=== PATIENT | female | born 1980 | race Caucasian/White ===

== ENCOUNTER 2016-07-12 10:33 | Emergency (ER) | payer BC, OTHER ==
[~2016-07-12] VITALS: Ht 162.6 cm; Wt 67.0 kg
[~2016-07-12 10:33] MED LIST: BUSP10TA PO; SERO300T PO
[2016-07-12 10:34] VITALS: BP 138/80; PULSE 97; RESP 16; TEMP 98.4; O2SAT 98
[2016-07-12 11:08] LABS: AUTOMATED NEUTROPHIL # 3.5 TH/MM3 (1.8-7.7); BASOPHIL % 0.4 % (0.0-2.0); EOSINOPHIL # 0.1 TH/MM3 (0-0.4); EOSINOPHIL % 2.6 % (0.0-4.0); HEMATOCRIT 37.9 % (35.0-46.0); HEMO FLAGS DIFF FINAL; LYMPH % 29.4 % (9.0-44.0); LYMPHOCYTE # 1.7 TH/MM3 (1.0-4.8); MEAN CELL VOLUME 87.1 FL (80.0-100.0); MEAN CORPUSCULAR HEMOGLOBIN 29.8 PG (27.0-34.0); MEAN CORPUSCULAR HGB CONC 34.2 % (32.0-36.0); NEUT % 60.6 % (16.0-70.0); PLATELET COUNT 279 TH/MM3 (150-450); RED BLOOD COUNT 4.35 MIL/MM3 (4.00-5.30); RED CELL DISTRIBUTION WIDTH 13.6 % (11.6-17.2); WHITE BLOOD COUNT 5.7 TH/MM3 (4.0-11.0)
[2016-07-12 11:32] LABS: BETA HCG QUANT 300 MIU/ML (0-5)
[2016-07-12] MEDS ORDERED: VIST50CA PO (12:08)
[2016-07-12 12:10] LABS: BACTERIA, URINE RARE /hpf; BLOOD, URINE NEG (NEG); COMMENT (UR) CULT NOT INDICATED; CULTURE IF INDICATED CULT NOT INDICATED; GLUCOSE,URINE NEG (NEG); KETONE, URINE NEG (NEG); MUCUS URINE FEW /lpf (OCC); NITRITE,URINE NEG (NEG); PH, URINE 5.5 (5.0-8.5); SQUAMOUS EPITHELIAL CELL URINE 6 /hpf (0-5); URINE COLOR YELLOW (YELLW/STRAW)
[2016-07-12] MEDS ORDERED: SUBO8MIS SL (12:12)
--- NOTE | 2016-07-12 12:36 | PD ---
HPI Chief Complaint: Related Problem Time Seen by Provider: 10:50 Travel History International Travel<30 days: No Contact w/Intl Traveler<30days: No Traveled to known affect area: No History of Present Illness HPI 36-year-old female with PMH of depression, bipolar, substance abuse (in remission) presents to the ED for evaluation of 2 day history of 4/10 lower abdominal cramping, left greater than right. Patient endorses mild dysuria. Denies hematuria. Patient denies fever, chills, nausea, vomiting, changes in bowel habits, vaginal bleeding, vaginal discharge. LMP 05/27/16. Patient states she had 2 positive tests at the urgent care today. Also complains of "a few months" history of the left inner thigh. No pain or discharge. Denies current substance abuse, alcohol use. Patient states that she does not smoke cigarettes but "vapes." PFSH Past Medical History Bipolar Disorder: Yes (dx approx. 2005) Depression: Yes Cardiovascular Problems: No Diminished Hearing: No Genitourinary: No Musculoskeletal: No Neurologic: No Reproductive: No Respiratory: No Influenza Vaccination: No ?: LMP: 05/27/2016 : 1 Miscarriage: 1 Dilation and Curettage (D&C): Yes (ENDOMETREOSIS) Past Surgical History Abdominal Surgery: Yes Other Surgery: Yes (labroscopy 2000) Social History Alcohol Use: No Tobacco Use: Yes (VAPE) Substance Use: No Allergies-Medications (Allergen,Severity, Reaction): Coded Allergies: Sulfa (Verified Allergy, Mild, 07/12/16) Reported Meds & Prescriptions Reported Meds & Active Scripts Active Metronidazole 500 Mg Tab 500 Mg PO BID 7 Days Reported Suboxone Sublingual Film (Buprenorphine-Naloxone Sublingual Film) 8-2 Mg Film 1 Film SL Unique ID number required: Vistaril (Hydroxyzine Pamoate) 50 Mg Cap 50 Mg PO TID Buspirone (Buspirone HCl) 10 Mg Tab 20 Mg PO TID Seroquel (Quetiapine Fumarate) 300 Mg Tab 300 Mg PO BID Review of Systems Except as stated in HPI: all other systems reviewed are Neg Physical Exam Narrative GENERAL: Well-nourished, well-developed white female in NAD. SKIN: Focused skin assessment warm/dry. There is a 1-2cm darkened area of the left inner thigh, just below the buttocks.No tenderness, fluctuance, warmth or erythema. HEAD: Normocephalic. EYES: No scleral icterus. No injection or drainage. NECK: Supple, trachea midline. No JVD or lymphadenopathy. CARDIOVASCULAR: Regular rate and rhythm without murmurs, gallops, or rubs. RESPIRATORY: Breath sounds clear and equal bilaterally. No accessory muscle use. GASTROINTESTINAL: Abdomen soft, nondistended. Mildly tender in the LLQ. Active bowel sounds. GENITOURINARY: Normal external genitalia without lesions or erythema. Vaginal vault with scant blood. No drainage. Cervix thick and firm. Cervical os was closed without drainage. No cervical motion tenderness. Uterus nontender and nonenlarged. Bilateral adnexa nontender without masses. MUSCULOSKELETAL: No cyanosis, or edema. Ambulatory. Moves the extremities spontaneously. BACK: Nontender without obvious deformity. No CVA tenderness. Data Data Last Documented VS Vital Signs Date Time Temp Pulse Resp B/P Pulse Ox O2 Delivery O2 Flow Rate FiO2 07/12/16 10:34 98.4 97 16 138/80 98 Orders Complete Blood Count With Diff (07/12/16 10:42) Beta Hcg (Quant/Titer) (07/12/16 10:42) Ed Urine Pregnancytest Poc (07/12/16 10:42) Urinalysis - C+S If Indicated (07/12/16 10:42) Gc And Chlamydia Pcr (07/12/16 12:40) Wet Prep Profile (07/12/16 12:40) Labs Laboratory Tests Test 07/12/16 07/12/16 07/12/16 10:54 11:05 13:10 White Blood Count 5.7 TH/MM3 Red Blood Count 4.35 MIL/MM3 Hemoglobin 13.0 GM/DL Hematocrit 37.9 % Mean Corpuscular Volume 87.1 FL Mean Corpuscular Hemoglobin 29.8 PG Mean Corpuscular Hemoglobin 34.2 % Concent Red Cell Distribution Width 13.6 % Platelet Count 279 TH/MM3 Mean Platelet Volume 9.2 FL Neutrophils (%) (Auto) 60.6 % Lymphocytes (%) (Auto) 29.4 % Monocytes (%) (Auto) 7.0 % Eosinophils (%) (Auto) 2.6 % Basophils (%) (Auto) 0.4 % Neutrophils # (Auto) 3.5 TH/MM3 Lymphocytes # (Auto) 1.7 TH/MM3 Monocytes # (Auto) 0.4 TH/MM3 Eosinophils # (Auto) 0.1 TH/MM3 Basophils # (Auto) 0.0 TH/MM3 CBC Comment DIFF FINAL Differential Comment Human Chorionic Gonadotropin, 300 MIU/ML Quant Urine Color YELLOW Urine Turbidity HAZY Urine pH 5.5 Urine Specific [place] 1.017 Urine Protein NEG mg/dL Urine Glucose (UA) NEG mg/dL Urine Ketones NEG mg/dL Urine Occult Blood NEG Urine Nitrite NEG Urine Bilirubin NEG Urine Urobilinogen LESS THAN 2.0 MG/DL Urine Leukocyte Esterase TRACE Urine RBC LESS THAN 1 /hpf Urine WBC 2 /hpf Urine Squamous Epithelial 6 /hpf Cells Urine Bacteria RARE /hpf Urine Mucus FEW /lpf Microscopic Urinalysis Comment CULT NOT INDICATED Clue Cells (Wet Prep) PRESENT Vaginal Trichomonas (Wet Prep) NONE SEEN Vaginal Yeast (Wet Prep) NONE SEEN MDM Medical Decision Making Medical Screen Exam Complete: Yes Emergency Medical Condition: Yes Differential Diagnosis IUP versus ectopic versus threatened versus STI versus UTI versus abscess versus cellulitis versus other Narrative Course 36-year-old female with PMH of depression, bipolar, substance abuse (in remission) presents to the ED for evaluation of 2 day history of 4/10 lower abdominal cramping, left greater than right. Patient endorses mild dysuria. Denies hematuria, fever, chills, nausea, vomiting, changes in bowel habits, vaginal bleeding, vaginal discharge. LMP 05/27/16. Patient states she had 2 positive tests at the urgent care today. Also complains of "a few months" history of the left inner thigh. No pain or discharge. Denies current substance abuse, alcohol use. Patient states that she does not smoke cigarettes but "vapes." Vitals reviewed. Physical exam reveals a well appearing white female in NAD. Abdominal exam with with mild TTP of the LLQ. Pelvic with scant blood in the canal. Cervix thick, firm, closed. No discharge. UPT: POSITIVE Hcg Quant: 300 CBC: no leukocytosis or anemia UA: Hazy. Trace LE, 2 WBC, rare bacteria. Wet prep: Positive for clue cells. I discussed the results of the workup with the patient. GC and chlamydia screening pending. Patient opts to defer treatment and will inquire about testing results on her return visit in 2 days. This is threatened miscarriage and bacterial vaginosis. Patient was instructed to return to the ED in 2 days for recheck of hCG. She is prescribed Flagyl 500 mg twice a day 7 days. She is instructed to take all medication as prescribed, follow up as discussed. She indicated understanding of instructions and is agreeable to the care plan. She is stable and discharged home. Diagnosis Primary Impression: Threatened in early Additional Impression: BV (bacterial vaginosis) Referrals: Inhalation Therapist Patient Instructions: Bacterial Vaginosis (ED), General Instructions, Threatened Miscarriage (ED) Additional Instructions: Rest, hydrate. Take all antibiotics as prescribed. Return to the ED in 2 days for repeat check of blood levels of the hormone. Check on the status of gonorrhea and chlamydia screening on your return visit as discussed. Return to ED for any urgent or emergent medical condition. Scripts Metronidazole 500 Mg [id number] Mg PO BID 7 Days Ref 0 Prov:Matilde Underwood MD 07/12/16 Disposition: 01 DISCHARGE HOME Condition: Stable Celsa Goode Jul 12, 2016 12:36
[2016-07-12] MEDS ORDERED: METR500T10 PO (13:32)
[2016-07-12 15:38] LABS: CHLAMYDIA PCR NOT DETECTED (NOT DETECT); NEISSERIA PCR NOT DETECTED (NOT DETECT)
== END 2016-07-12 14:09 | disposition home or self-care (01) ==
LOC: NEPD 10:33
DX: O20.0 Threatened abortion (principal); O23.591 Infection of other part of genital tract in pregnancy, first trimester; Z3A.00 Weeks of gestation of pregnancy not specified
CPT/HCPCS: 81001; 84702; 84703; 85025; 87210; 87491; 87591; 99283

== ENCOUNTER 2016-07-14 08:53 | Emergency (ER) | payer OTHER ==
[~2016-07-14] VITALS: Ht 162.6 cm; Wt 66.0 kg
[~2016-07-14 08:53] MED LIST changes: +METR500T10 PO; +SUBO8MIS SL; +VIST50CA PO
[2016-07-14 08:54] VITALS: BP 138/94; PULSE 112; RESP 20; TEMP 98.5; O2SAT 98
[2016-07-14 09:05] VITALS: BP 118/75; PULSE 93; RESP 14; TEMP 98.3; O2SAT 99
--- NOTE | 2016-07-14 09:06 | PD ---
HPI . Pelvic pain Chief Complaint: Related Problem Time Seen by Provider: 09:01 Travel History International Travel<30 days: No Contact w/Intl Traveler<30days: No Traveled to known affect area: No History of Present Illness HPI Patient presents with now a 4 day history of pelvic pain and vaginal bleeding. She is . Last normal menstrual period was 05/27. She states that her bleeding is more than spotting but less than a menstrual cycle. Her pain is described as cramping and is rated as 5/10. She was seen here on 07/12 and was found to have a quantitative hCG of only 300. She was instructed to return here today for repeat. Patient reports that the Flagyl that she was prescribed 2 days ago seems to be causing a reaction. She is having some itching and some burning and tearing of her eyes. PFSH Past Medical History Bipolar Disorder: Yes (dx approx. 2005) Depression: Yes Cardiovascular Problems: No Diminished Hearing: No Genitourinary: No Musculoskeletal: No Neurologic: No Reproductive: No Respiratory: No ?: Not LMP: 05/27/16 : 1 Miscarriage: 1 Dilation and Curettage (D&C): Yes (ENDOMETREOSIS) Past Surgical History Abdominal Surgery: Yes Other Surgery: Yes (labroscopy 2000) Social History Alcohol Use: No Tobacco Use: Yes (VAPE) Substance Use: No Allergies-Medications (Allergen,Severity, Reaction): Coded Allergies: Sulfa (Verified Allergy, Mild, 07/14/16) Reported Meds & Prescriptions Reported Meds & Active Scripts Active Clindamycin Vaginal Cream (Clindamycin Phosphate) 2% Cream 1 Appl VAGINAL HS Metronidazole 500 Mg Tab 500 Mg PO BID 7 Days Reported Suboxone Sublingual Film (Buprenorphine-Naloxone Sublingual Film) 8-2 Mg Film 1 Film SL Unique ID number required: Vistaril (Hydroxyzine Pamoate) 50 Mg Cap 50 Mg PO TID Buspirone (Buspirone HCl) 10 Mg Tab 20 Mg PO TID Seroquel (Quetiapine Fumarate) 300 Mg Tab 300 Mg PO BID Review of Systems Except as stated in HPI: all other systems reviewed are Neg Eyes: Positive: Tearing, Other (burning of her eyes) Genitourinary: Positive: Pelvic Pain, Vaginal Bleeding Skin: Positive Rash Physical Exam Narrative GENERAL: Awake and alert and in no acute distress. SKIN: Warm and dry. HEAD: Atraumatic. Normocephalic. EYES: Pupils equal and round. NECK: Trachea midline. CARDIOVASCULAR: Regular rate and rhythm. RESPIRATORY: No accessory muscle use. ABDOMEN: Soft with minimal suprapubic tenderness. No guarding or rebound. MUSCULOSKELETAL: No obvious deformities. No edema. NEUROLOGICAL: Awake and alert. No obvious cranial nerve deficits. Motor grossly within normal limits. Normal speech. PSYCHIATRIC: Appropriate mood and affect; insight and judgment normal. Data Data Last Documented VS Vital Signs Date Time Temp Pulse Resp B/P Pulse Ox O2 Delivery O2 Flow Rate FiO2 07/14/16 09:05 98.3 93 14 118/75 99 Room Air Orders Beta Hcg (Quant/Titer) (07/14/16 08:57) Abo/Rh Blood Type (07/14/16 09:07) Labs Laboratory Tests Test 07/14/16 07/14/16 09:00 09:15 Human Chorionic Gonadotropin, 92 MIU/ML Quant Blood Type A POSITIVE Blood Bank Comment MDM Medical Decision Making Medical Screen Exam Complete: Yes Emergency Medical Condition: Yes Medical Record Reviewed: Yes (patient was here on 07/12 for pelvic cramping in early . She was found to have a very low rate of hCG at 300. She was also found to have bacterial vaginosis. She is here today for repeat hCG.) Differential Diagnosis Differential diagnosis of bleeding in includes but is not limited to physiologic bleeding, spontaneous AB, ectopic , placenta previa Narrative Course Patient presents for recheck of pelvic pain in early . We also need to change her antibiotic that she was prescribed for bacterial vaginosis. She seems to be having a reaction to the Flagyl. Furthermore, I do not see her blood type in her record. We will check that today as well. Quantitative hCG is down to 92. Her blood type is A+. This patient is having a spontaneous AB. I will discharge her with instructions to follow-up with gynecology in about a week. Diagnosis Primary Impression: Spontaneous Additional Impression: BV (bacterial vaginosis) Referrals: Insurance Processor 1 week Med/Other Pt SpecificInfo: Prescription(s) given, Med Stopped Scripts Clindamycin Vaginal Cream 2% Cream1 Appl VAGINAL HS #7 APPL Ref 0 Prov:Yvette Valladares MD 07/14/16 Disposition: 01 DISCHARGE HOME Condition: Stable Yvette Valladares MD Jul 14, 2016 09:05
[2016-07-14] MEDS ORDERED: CLIN2CRE VAGINAL (09:14)
[2016-07-14 09:29] LABS: BETA HCG QUANT 92 MIU/ML (0-5)
== END 2016-07-14 10:19 | disposition home or self-care (01) ==
LOC: NEPD 08:53
DX: O03.9 Complete or unspecified spontaneous abortion without complication (principal); N76.0 Acute vaginitis; O23.599 Infection of other part of genital tract in pregnancy, unspecified trimester
CPT/HCPCS: 84702; 86900; 86901; 99283

== ENCOUNTER 2016-10-30 15:23 | Emergency (ER) | payer OTHER ==
[~2016-10-30] VITALS: Ht 162.6 cm; Wt 74.0 kg
[~2016-10-30 15:23] MED LIST changes: -METR500T10 PO
[2016-10-30 15:25] VITALS: BP 130/73; PULSE 107; RESP 20; TEMP 98.2; O2SAT 97
--- NOTE | 2016-10-30 16:09 | PD ---
Physical Exam Date Seen by Provider: Oct 30, 2016 Time Seen by Provider: 16:06 Narrative 36-year-old female presents to emergency Department with 3 week history of upper extremity infection symptoms which now settled in her chest. She now has increased wheezing and cough and congestion, with reports waking up at night short of breath and feels like she is choking. Patient has history of asthma but has not had need for an inhaler for several years. Patient does admit to smoking. Patient denies productive cough. She feels increased shortness of breath with exertion. Patient denies . Patient denies significant pain. Patient is allergic to sulfa. Vital signs are reviewed. Patient is awaiting bed placement. Data Data Last Documented VS Vital Signs Date Time Temp Pulse Resp B/P (MAP) Pulse Ox O2 Delivery O2 Flow Rate FiO2 10/30/16 15:25 98.2 107 20 130/73 (92) 97 Room Air [facility] Medical Record Reviewed: Yes Supervised Visit with BRAD: Yes Condition: Stable Juancho Nobles Oct 30, 2016 16:09
--- NOTE | 2016-10-30 16:32 | PD ---
HPI Chief Complaint: Respiratory Symptoms Time Seen by Provider: 14:30 Travel History International Travel<30 days: No Contact w/Intl Traveler<30days: No Traveled to known affect area: No History of Present Illness HPI 36-year-old female patient presents to the emergency department for evaluation of cough that she has been experiencing status post upper respiratory infection 3 weeks ago. Patient states herself and her children were sick 3 weeks ago but she is the only one that still has a cough. Patient denies any fevers or chest pain. Patient denies any abdominal pain, nausea vomiting diarrhea. Patient denies any other physiological complaints outside the cough. Patient has a history of asthma however has not had an exacerbation for many years. Patient denies the cough being productive. Patient states the cough is worse at night. Patient denies rhinorrhea or sore throat. Patient denies any recent travels or use of control pills. PFSH Past Medical History Bipolar Disorder: Yes (dx approx. 2005) Depression: Yes Cardiovascular Problems: No Diminished Hearing: No Genitourinary: No Musculoskeletal: No Neurologic: No Reproductive: No Respiratory: No ?: Not LMP: 10/27 : 1 Miscarriage: 1 Dilation and Curettage (D&C): Yes (ENDOMETREOSIS) Past Surgical History Abdominal Surgery: Yes Other Surgery: Yes (labroscopy 2000) Social History Alcohol Use: No Tobacco Use: Yes ( ) Substance Use: No Allergies-Medications (Allergen,Severity, Reaction): Coded Allergies: Sulfa (Sulfonamide Antibiotics) (Unverified Allergy, Mild, 10/30/16) Reported Meds & Prescriptions Reported Meds & Active Scripts Active Reported Suboxone Sublingual Film (Buprenorphine-Naloxone Sublingual Film) 8-2 Mg Film 1 Film SL Unique ID number required: Vistaril (Hydroxyzine Pamoate) 50 Mg Cap 50 Mg PO TID Buspirone (Buspirone HCl) 10 Mg Tab 20 Mg PO TID Seroquel (Quetiapine Fumarate) 300 Mg Tab 300 Mg PO BID Review of Systems Except as stated in HPI: all other systems reviewed are Neg Physical Exam Narrative GENERAL: Well-nourished well-developed 36-year-old female in no apparent distress. SKIN: Focused skin assessment warm/dry. HEAD: Atraumatic. Normocephalic. EYES: Pupils equal and round. No scleral icterus. No injection or drainage. ENT: No nasal bleeding or discharge. Mucous membranes pink and moist. NECK: Trachea midline. No JVD. CARDIOVASCULAR: Regular rate and rhythm. No murmur appreciated. RESPIRATORY: No accessory muscle use. No wheezing on inspiration or exhalation. Clear to auscultation. Breath sounds equal bilaterally. GASTROINTESTINAL: Abdomen soft, non-tender, nondistended. Hepatic and splenic margins not palpable. MUSCULOSKELETAL: No obvious deformities. No clubbing. No cyanosis. No edema. NEUROLOGICAL: Awake and alert. No obvious cranial nerve deficits. Motor grossly within normal limits. Normal speech. PSYCHIATRIC: Appropriate mood and affect; insight and judgment normal. Data Data Last Documented VS Vital Signs Date Time Temp Pulse Resp B/P (MAP) Pulse Ox O2 Delivery O2 Flow Rate FiO2 10/30/16 15:25 98.2 107 20 130/73 (92) 97 Room Air MDM Medical Decision Making Medical Screen Exam Complete: Yes Emergency Medical Condition: Yes Medical Record Reviewed: Yes Interpretation(s) Afebrile Differential Diagnosis Differential diagnoses include but not limited to bronchitis, pneumonia, upper respiratory infection, asthma exacerbation, allergic rhinitis Narrative Course 36-year-old female presents to the emergency department for evaluation of cough 3 weeks. Patient states herself and her children were sick with an upper respiratory infection 3 weeks ago. She is the only person that remains with a cough. Patient admits to smoking daily. Patient states she does have a history of asthma but has not had an exacerbation in many years. Patient denies any fever, chest pain, malaise, nausea, vomiting, diarrhea, rhinorrhea, sore throat or lightheadedness. There is no wheezing noted on inspiration or expiration. Patient states the cough is not productive and is worse at night. Patient case discussed with my attending Dr. Valladares. Patient will be discharged home with prescription for prednisone and an albuterol inhaler. Patient will be instructed to return the emergency Department with any worsening condition or emergent symptoms. Based on patient's symptoms, clinical presentation and vital sign review hospital admission is not necessary and there is no further need for evaluation in the emergency department. Diagnosis Primary Impression: Bronchitis Referrals: Primary Care Physician Patient Instructions: Acute Bronchitis (ED), General Instructions Additional Instructions: Take prednisone for 5 days to reduce inflammation. Take albuterol inhaler as needed to open up the bronchials and reduce cough. Stop smoking. Return to the emergency department with any worsening condition or emergent symptoms. Med/Other Pt SpecificInfo: Prescription(s) given Scripts Albuterol 8.5 GM Inh (Proair Hfa 8.5 GM Inh) 90 Mcg/Act Aer 2 PUFF INH Q4-6H Y for COUGH, #1 INHALER 0 Refills 108 mcg/actuation Prov: Gemma Lozada 10/30/16 Prednisone (Prednisone) 50 Mg Tab 50 MG PO DAILY for 5 Days, #5 TAB 0 Refills Prov: Gemma Lozada 10/30/16 Disposition: 01 DISCHARGE HOME Condition: Stable Gemma Lozada Oct 30, 2016 16:32
[2016-10-30] MEDS ORDERED: PRED50 PO (16:57)
[2016-10-30] MEDS ORDERED: ALBUAER3 INH (16:58)
== END 2016-10-30 17:16 | disposition home or self-care (01) ==
LOC: NEPD 15:23
DX: J40 Bronchitis, not specified as acute or chronic (principal); J45.909 Unspecified asthma, uncomplicated; Z72.0 Tobacco use
CPT/HCPCS: 99284

== ENCOUNTER 2016-11-09 07:47 | Emergency (ER) | payer OTHER ==
[~2016-11-09] VITALS: Ht 162.6 cm; Wt 78.0 kg
[~2016-11-09 07:47] MED LIST changes: +ALBUAER3 INH; +PRED50 PO
[2016-11-09 07:50] VITALS: BP 133/87; PULSE 100; RESP 16; TEMP 98.3; O2SAT 94; O2SAT 96
[2016-11-09] MEDS ORDERED: SODIUM CHLOR 0.9% 1000 ML INJ 1,000 ML IV SCH (08:01)
[2016-11-09 08:07] VITALS: O2SAT 98
--- NOTE | 2016-11-09 08:07 | PD ---
HPI Chief Complaint: General Weakness Time Seen by Provider: 08:01 Travel History International Travel<30 days: No Contact w/Intl Traveler<30days: No Traveled to known affect area: No History of Present Illness HPI 36-year-old female patient presents to the ER today for 2 days of nausea, vomiting, diarrhea, headache, feeling tired. She states that she had some cold symptoms of been going on for a few weeks, was seen for bronchitis, but states it never really went away. She denies any recent fevers, stiff neck, or any other symptoms. She had vomited multiple times last night. States that she is now also having lower abdominal pains which she currently rates it a 5 out of 10. Modifying Factors: None Associated Signs & Symptoms: Nausea, vomiting, diarrhea, abdominal discomfort, headaches, fatigue Risk Factors: None PFSH Past Medical History Bipolar Disorder: Yes (dx approx. 2006) Anxiety: Yes Depression: Yes Diminished Hearing: No Medical other: Yes (endometrosis ) ?: Not LMP: 10/2016 : 1 Miscarriage: 1 Dilation and Curettage (D&C): Yes (ENDOMETREOSIS) Past Surgical History Abdominal Surgery: Yes Other Surgery: Yes (labroscopy 2000) Social History Alcohol Use: No Tobacco Use: Yes ( 1/2 pack a day ) Substance Use: No Allergies-Medications (Allergen,Severity, Reaction): Coded Allergies: Sulfa (Sulfonamide Antibiotics) (Unverified Allergy, Mild, 11/09/16) Reported Meds & Prescriptions Reported Meds & Active Scripts Active Proair Hfa 8.5 GM Inh (Albuterol Sulfate) 90 Mcg/Act Aer 2 Puff INH Q4-6H PRN 108 mcg/actuation Reported Suboxone Sublingual Film (Buprenorphine-Naloxone Sublingual Film) 8-2 Mg Film 1 Film SL Unique ID number required: Vistaril (Hydroxyzine Pamoate) 50 Mg Cap 50 Mg PO TID Buspirone (Buspirone HCl) 10 Mg Tab 20 Mg PO TID Seroquel (Quetiapine Fumarate) 300 Mg Tab 300 Mg PO BID Review of Systems Except as stated in HPI: all other systems reviewed are Neg Physical Exam Narrative GENERAL: Well-developed middle age white female patient currently in mild distress. Awake and oriented 3. SKIN: Focused skin assessment warm/dry. HEAD: Atraumatic. Normocephalic. EYES: Pupils equal and round. No scleral icterus. No injection or drainage. ENT: No nasal bleeding or discharge. Mucous membranes pink and moist. NECK: Trachea midline. No JVD. CARDIOVASCULAR: Regular rate and rhythm. No murmur appreciated. RESPIRATORY: No accessory muscle use. Clear to auscultation. Breath sounds equal bilaterally. GASTROINTESTINAL: Abdomen soft, non-tender, nondistended. Hepatic and splenic margins not palpable. MUSCULOSKELETAL: No obvious deformities. No clubbing. No cyanosis. No edema. NEUROLOGICAL: Awake and alert. No obvious cranial nerve deficits. Motor grossly within normal limits. Normal speech. PSYCHIATRIC: Appropriate mood and affect; insight and judgment normal. Data Data Last Documented VS Vital Signs Date Time Temp Pulse Resp B/P (MAP) Pulse Ox O2 Delivery O2 Flow Rate FiO2 11/09/16 08:07 98 Room Air 11/09/16 08:07 89 16 11/09/16 07:50 98.3 133/87 (102) Orders Orders Complete Blood Count With Diff (11/09/16 08:01) Comprehensive Metabolic Panel (11/09/16 08:01) Lipase (11/09/16 08:01) Urinalysis - C+S If Indicated (11/09/16 08:01) Iv Access Insert/Monitor (11/09/16 08:01) Ecg Monitoring (11/09/16 08:01) Oximetry (11/09/16 08:01) Ondansetron Inj (Zofran Inj) (11/09/16 08:15) Sodium Chlor 0.9% 1000 Ml Inj (Ns 1000 M (11/09/16 08:01) Sodium Chloride 0.9% Flush (Ns Flush) (11/09/16 08:15) Ed Urine Pregnancytest Poc (11/09/16 08:01) Chest, Single Ap (11/09/16 09:09) Ct Abd/Pel W Iv Contrast(Rout) (11/09/16 09:35) Iohexol 350 Inj (Omnipaque 350 Inj) (11/09/16 10:00) Labs Laboratory Tests Test 11/09/16 08:01 11/09/16 09:00 White Blood Count 16.7 TH/MM3 Red Blood Count 4.86 MIL/MM3 Hemoglobin 14.4 GM/DL Hematocrit 43.2 % Mean Corpuscular Volume 88.8 FL Mean Corpuscular Hemoglobin 29.6 PG Mean Corpuscular Hemoglobin Concent 33.3 % Red Cell Distribution Width 14.0 % Platelet Count 355 TH/MM3 Mean Platelet Volume 8.2 FL Neutrophils (%) (Auto) 85.2 % Lymphocytes (%) (Auto) 5.5 % Monocytes (%) (Auto) 9.0 % Eosinophils (%) (Auto) 0.2 % Basophils (%) (Auto) 0.1 % Neutrophils # (Auto) 14.3 TH/MM3 Lymphocytes # (Auto) 0.9 TH/MM3 Monocytes # (Auto) 1.5 TH/MM3 Eosinophils # (Auto) 0.0 TH/MM3 Basophils # (Auto) 0.0 TH/MM3 CBC Comment DIFF FINAL Differential Comment Blood Urea Nitrogen 19 MG/DL Creatinine 1.18 MG/DL Random Glucose 124 MG/DL Total Protein 7.3 GM/DL Albumin 3.9 GM/DL Calcium Level 9.7 MG/DL Alkaline Phosphatase 65 U/L Aspartate Amino Transf (AST/SGOT) 25 U/L Alanine Aminotransferase (ALT/SGPT) 19 U/L Total Bilirubin 0.6 MG/DL Sodium Level 141 MEQ/L Potassium Level 4.3 MEQ/L Chloride Level 109 MEQ/L Carbon Dioxide Level 25.8 MEQ/L Anion Gap 6 MEQ/L Estimat Glomerular Filtration Rate 52 ML/MIN Lipase 54 U/L Urine Color LIGHT-YELLOW Urine Turbidity CLEAR Urine pH 7.5 Urine Specific [place] 1.006 Urine Protein NEG mg/dL Urine Glucose (UA) NEG mg/dL Urine Ketones NEG mg/dL Urine Occult Blood SMALL Urine Nitrite NEG Urine Bilirubin NEG Urine Urobilinogen LESS THAN 2.0 MG/DL Urine Leukocyte Esterase NEG Urine RBC 1 /hpf Urine WBC 1 /hpf Urine Squamous Epithelial Cells 2 /hpf Urine Bacteria RARE /hpf Microscopic Urinalysis Comment CULT NOT INDICATED MDM Medical Decision Making Medical Screen Exam Complete: Yes Emergency Medical Condition: Yes Medical Record Reviewed: Yes Interpretation(s) Laboratory Tests Test 11/09/16 08:01 11/09/16 09:00 White Blood Count 16.7 TH/MM3 (4.0-11.0) Neutrophils (%) (Auto) 85.2 % (16.0-70.0) Lymphocytes (%) (Auto) 5.5 % (9.0-44.0) Monocytes (%) (Auto) 9.0 % (0.0-8.0) Neutrophils # (Auto) 14.3 TH/MM3 (1.8-7.7) Lymphocytes # (Auto) 0.9 TH/MM3 (1.0-4.8) Monocytes # (Auto) 1.5 TH/MM3 (0-0.9) Blood Urea Nitrogen 19 MG/DL (7-18) Creatinine 1.18 MG/DL (0.50-1.00) Random Glucose 124 MG/DL (74-106) Chloride Level 109 MEQ/L (98-107) Estimat Glomerular Filtration Rate 52 ML/MIN (>89) Lipase 54 U/L (73-393) Urine Occult Blood SMALL (NEG) Urine Bacteria RARE /hpf (NONE) Differential Diagnosis Viral syndrome versus dehydration versus metabolic issues versus Narrative Course Lab work shows significant leukocytosis. IV fluids and Zofran was given in the ER with improvement in symptoms. Vital signs are stable in the ER. Her CAT scan shows signs of colitis. There are no signs of perforation or other acute processes. At this point, my plan would be to release her with symptomatic relief or nausea and vomiting as well as antibiotics for possible underlying inflammatory colitis. Return for any worsening in symptoms as necessary. Follow-up with primary care physician. The plan was discussed with her and she states understanding. Diagnosis Primary Impression: Colitis Med/Other Pt SpecificInfo: Prescription(s) given Scripts Ondansetron Odt (Zofran Odt) 4 Mg Tab 4 MG SL Q6HR Y for Nausea/Vomiting, #7 TAB 0 Refills Prov: Lisa Dunlap MD 11/09/16 Metronidazole (Flagyl) 500 Mg Tab 500 MG PO TID for Infection for 7 Days, TAB 0 Refills Prov: Lisa Dunlap MD 11/09/16 Ciprofloxacin (Cipro) 500 Mg Tab 500 MG PO BID for Infection for 7 Days, #14 TAB 0 Refills Prov: Lisa Dunlap MD 11/09/16 Disposition: 01 DISCHARGE HOME Condition: Stable Lisa Dunlap MD Nov 09, 2016 08:07
[2016-11-09] MEDS ORDERED: SODIUM CHLORIDE 0.9% FLUSH 10 ML FLUSH IV FLUSH PRN (08:15)
[2016-11-09] MEDS ORDERED: ONDANSETRON HCL 4 MG/2 ML VIAL IVP ONE (08:15)
[2016-11-09 08:23] LABS: AUTOMATED NEUTROPHIL # 14.3 TH/MM3 (1.8-7.7); BASOPHIL % 0.1 % (0.0-2.0); EOSINOPHIL % 0.2 % (0.0-4.0); HEMATOCRIT 43.2 % (35.0-46.0); HEMO FLAGS DIFF FINAL; LYMPH % 5.5 % (9.0-44.0); LYMPHOCYTE # 0.9 TH/MM3 (1.0-4.8); MEAN CELL VOLUME 88.8 FL (80.0-100.0); MEAN CORPUSCULAR HEMOGLOBIN 29.6 PG (27.0-34.0); MEAN CORPUSCULAR HGB CONC 33.3 % (32.0-36.0); NEUT % 85.2 % (16.0-70.0); PLATELET COUNT 355 TH/MM3 (150-450); RED BLOOD COUNT 4.86 MIL/MM3 (4.00-5.30); WHITE BLOOD COUNT 16.7 TH/MM3 (4.0-11.0)
[2016-11-09 08:38] LABS: ALT (GPT) 19 U/L (10-53)
[2016-11-09 08:41] LABS: ALKALINE PHOSPHATASE 65 U/L (45-117); TOTAL BILIRUBIN ADULT 0.6 MG/DL (0.2-1.0)
[2016-11-09 09:01] LABS: ANION GAP 6 MEQ/L (5-15); AST (GOT) 25 U/L (15-37); BICARBONATE 25.8 MEQ/L (21.0-32.0); BLOOD UREA NITROGEN 19 MG/DL (7-18); CHLORIDE 109 MEQ/L (98-107); GLOMERULAR FILTRATION RATE 52 ML/MIN (>89); POTASSIUM 4.3 MEQ/L (3.5-5.1); SODIUM (NA) 141 MEQ/L (136-145)
[2016-11-09 09:22] LABS: BACTERIA, URINE RARE /hpf; BLOOD, URINE SMALL (NEG); COMMENT (UR) CULT NOT INDICATED; CULTURE IF INDICATED CULT NOT INDICATED; GLUCOSE,URINE NEG (NEG); KETONE, URINE NEG (NEG); NITRITE,URINE NEG (NEG); PH, URINE 7.5 (5.0-8.5); SQUAMOUS EPITHELIAL CELL URINE 2 /hpf (0-5); URINE COLOR LIGHT-YELLOW (YELLW/STRAW)
--- NOTE | 2016-11-09 09:31 | RADRPT ---
EXAM DATE/TIME: 11/09/2016 09:21 [facility] COMPARISON: No previous studies available for comparison. INDICATIONS : Short of breath, weak, vomiting and diarrhea last night MEDICAL HISTORY : Asthma SURGICAL HISTORY : None. ENCOUNTER: Initial ACUITY: 1 day PAIN SCORE: 0/10 LOCATION: Bilateral chest FINDINGS: A single view of the chest demonstrates the lungs to be symmetrically aerated without evidence of mas s, infiltrate or effusion. The cardiomediastinal contours are unremarkable. Osseous structures are intact. CONCLUSION: 1. No acute cardiopulmonary disease. Alberto Marshall MD on November 09, 2016 at 9:30 Board Certified Radiologist. This report was verified electronically.
[2016-11-09] MEDS ORDERED: IOHEXOL 350 MG/ML 10 ML VIAL (for RAD DIAG) IVCONTRAST ONE (10:00)
--- NOTE | 2016-11-09 10:24 | RADRPT ---
EXAM DATE/TIME: 11/09/2016 09:49 [facility] COMPARISON: No previous studies available for comparison. INDICATIONS : Nausea, vomiting, and diarrhea and left lower quadrant pain IV CONTRAST: 85 cc Omnipaque 350 (iohexol) IV ORAL CONTRAST: No oral contrast ingested. RADIATION DOSE: 9.96 CTDIvol (mGy) MEDICAL HISTORY : Endometriosis SURGICAL HISTORY : ENCOUNTER: Initial ACUITY: 1 day PAIN SCALE: 4/10 LOCATION: diffuse abdomen TECHNIQUE: Volumetric scanning of the abdomen and pelvis was performed. Using automated exposure control and ad justment of the mA and/or kV according to patient size, radiation dose was kept as low as reasonably achievable to obtain optimal diagnostic quality images. DICOM format image data is available electro nically for review and comparison. FINDINGS: LOWER LUNGS: The visualized lower lungs are clear. LIVER: Homogeneous density without lesion. There is no dilation of the biliary tree. No calcified gallston es. SPLEEN: Normal size without lesion. PANCREAS: Within normal limits. KIDNEYS: Normal in size and shape. There is no mass, stone or hydronephrosis. ADRENAL GLANDS: Within normal limits. VASCULAR: There is no aortic aneurysm. Mesenteric arteries are grossly patent. SMV and portal vein are patent. BOWEL/MESENTERY: Colon is decompressed which accentuates the colonic bowel wall. However, there is diffuse colonic wal l thickening with associated pericolonic stranding extending from the splenic flexure to the rectum. Transverse colon and descending colon appear grossly unremarkable. There are several loops of slightl y prominent small bowel in the left abdomen, suspect this is reactive to the colonic inflammation. Th ere is no free air, pneumatosis, or drainable fluid collections. ABDOMINAL WALL: Within normal limits. RETROPERITONEUM: There is no lymphadenopathy. BLADDER: No wall thickening or mass. REPRODUCTIVE: IUD in place. INGUINAL: There is no lymphadenopathy or hernia. MUSCULOSKELETAL: Within normal limits for patient age. CONCLUSION: 1. Confluent colitis extending from the splenic flexure to the rectum without evidence for perforatio n or abscess. Slightly prominent loops of small bowel in the left abdomen are likely reactive to the colonic inflammation although overall evaluation is limited due to lack of oral contrast. Differentia l considerations include inflammatory bowel disease or infectious colitis. Alberto Marshall MD on November 09, 2016 at 10:11 Board Certified Radiologist. This report was verified electronically.
[2016-11-09] MEDS ORDERED: CIPR-9 PO (10:30)
[2016-11-09] MEDS ORDERED: METR-1 PO (10:30)
[2016-11-09] MEDS ORDERED: ZOFR4TAB3 SL (10:30)
== END 2016-11-09 10:52 | disposition home or self-care (01) ==
LOC: NEPC 07:47
DX: K52.9 Noninfective gastroenteritis and colitis, unspecified (principal); F17.200 Nicotine dependence, unspecified, uncomplicated
CPT/HCPCS: 71010; 74177; 80053; 81001; 83690; 84703; 85025; 96374; 99285; J2405; J7030; Q9967